=== PATIENT | male | born 1965 | race Caucasian/White ===

== ENCOUNTER 2019-07-04 02:43 | Emergency (ER) | payer OTHER ==
[2019-07-04 03:17] LABS: #Basophils 0.1 thou/uL (0.0-0.2); #Eosinphils 0.2 thou/uL (0.0-0.7); #Lymphocytes 1.8 thou/uL (1.20-3.40); #Monocytes 0.7 thou/uL (0.11-0.59); #Neutrophils 5.1 thou/uL (1.40-6.50); %Basophils 0.9 % (0.0-1.0); %Eosinophils 2.8 % (0.0-10.0); %Lymphocytes 22.4 % (21.0-51.0); %Monocytes 9.4 % (0.0-10.0); %Neutrophils 64.6 % (42.0-75.0); Hemoglobin 13.7 g/dL (14.0-18.0); Mean Corpuscular HGB CONC 35.5 g/dL (32.0-36.0); Mean Corpuscular Hemoglobin 31.5 pg (27.0-31.0); Mean Corpuscular Volume 88.7 fL (78.0-98.0); Mean Platelet Volume 7.6 fL (7.4-10.4); Platelet Count 150 thou/uL (130-400); RBC Distribution Width 11.9 % (11.5-14.5); Red Blood Cell (RBC) Count 4.34 mill/uL (4.70-6.10); White Blood Cell (WBC) Count 7.9 thou/uL (4.8-10.8)
[2019-07-04 03:34] LABS: Bilirubin Negative (Negative); Blood, Urine Negative (Negative); Clarity Turbid (Clear); Glucose, Urine (Dipstick) Normal (Negative); Leukocyte Negative Leu/uL (Negative); Nitrite Negative (Negative); Protein, Urine (Dipstick) Negative (Neg-Trace); Urobilinogen Normal mg/dL (Less than 2)
[2019-07-04 03:40] LABS: ALT (SGPT) 36 U/L (8-55); AST (SGOT) 30 U/L (5-34); Albumin 3.9 g/dL (3.5-5.0); Alkaline Phosphatase 47 U/L (40-110); Anion Gap 11 mmol/L (10-20); BUN (Urea Nitrogen) 18 mg/dL (8.4-25.7); Bilirubin, Total 0.4 mg/dL (0.2-1.2); CK (CPK) 422 U/L (30-200); Calc. Creatinine Clearance 0 mL/min (70-130); Calcium 8.7 mg/dL (7.8-10.44); Carbon Dioxide 29 mmol/L (22-29); Chloride 106 mmol/L (98-107); Estimated GFR-MDRD 48; Globulin 2.7 g/dL (2.4-3.5); Glucose 76 mg/dL (70-105); Potassium 4.1 mmol/L (3.5-5.1); Protein, Total 6.6 g/dL (6.0-8.3); Sodium 142 mmol/L (136-145)
[2019-07-04 06:45] LABS: Troponin I 0.013 ng/mL (< 0.028)
--- NOTE | 2019-07-04 07:57 | RAD ---
RADIOGRAPH CHEST 1 VIEW: DATE: 07/04/2019 HISTORY: 54-year-old male with palpitations FINDINGS: There are no airspace densities, pulmonary edema, pneumothorax, or cardiomegaly. The lateral costophr enic angles are sharp. IMPRESSION: No acute cardiopulmonary findings.
--- NOTE | 2019-07-04 10:26 | CT ---
PRELIMINARY REPORT/[facility]/EMERGENCY AFTER HOURS PROCEDURE: PROCEDURE INFORMATION: Exam: CT Angiography Chest With Contrast Exam date and time: 07/04/2019 3:56 AM Clinical history: 54 years old, male; Pain radiating to back. Question dissection. TECHNIQUE: Imaging protocol: Computed tomographic angiography of the chest with intravenous contrast. COMPARISON: No relevant prior studies available. FINDINGS: Pulmonary arteries: Not adequately opacified for evaluation. Aorta: No aortic aneurysm. No aortic dissection. Lungs: No focal infiltrate. No masses. Pleural space: No pneumothorax. No pleural effusion. Heart: No cardiomegaly. No pericardial effusion. Lymph nodes: Unremarkable. No enlarged lymph nodes. Bones/joints: Unremarkable. No acute fracture. Soft tissues: Unremarkable. IMPRESSION: No aortic aneurysm. No aortic dissection. No acute disease identified. PROCEDURE INFORMATION: Exam: CTA Angiogram of the Abdominal Aorta and Bilateral Lower Extremities (Run-off) With IV Contrast Exam date and time: 07/04/2019 3:56 AM Clinical history: 54 years old, male; Abdominal pain; Patient HX: 54 male presents to the ED with hipolito ateral medial leg pain that starts at the medial aspect of the knee and radiates up towards the groin . PT notes that for the past couple of days he has been working outside more then normal the past few days and was drinking less water then normal. PT describes the pain as getting gradually bet ter since the saline was given in the EMS ride over here. PT does have a HX of l4/l5 l5/s1 herniated disk but notes the pain he is currently having is distinctly different then his back pain before. PT denies recent trama. PT denies penile and testicular pain, discharge, bowl or bladder incontinence and numbness. TECHNIQUE: Imaging protocol: CT angiogram of the abdominal aorta, pelvis and bilateral lower extremities with IV iodinated contrast. COMPARISON: No relevant prior studies available. FINDINGS: Aorta: No aortic aneurysm. No aortic dissection. Celiac trunk and mesenteric arteries: No occlusion or significant stenosis. Renal arteries: No occlusion or significant stenosis. Right iliac arteries: No occlusion or significant stenosis. Right femoral/popliteal arteries: No occlusion or significant stenosis. Right infrapopliteal arteries: No occlusion or significant stenosis. Left iliac arteries: No occlusion or significant stenosis. Left femoral/popliteal arteries: No occlusion or significant stenosis. Left infrapopliteal arteries: No occlusion or significant stenosis. Liver: No mass. Fatty liver infiltration. Gallbladder and bile ducts: Unremarkable. No calcified stones. No ductal dilation. Pancreas: Unremarkable. No mass. No ductal dilation. Spleen: Normal. No splenomegaly. Adrenals: Normal. No mass. Kidneys and ureters: No mass. Stomach and bowel: There is dense colonic fecal retention. No mechanical obstruction. No mucosal thic kening. There is colonic diverticulosis without CT evidence for acute diverticulitis. Appendix: No evidence of appendicitis. Bladder: Moderate wall thickening. No mass. Reproductive: Unremarkable as visualized. Intraperitoneal space: Unremarkable. No free air. No significant fluid collection. Lymph nodes: No lymphadenopathy. Bones/joints: No acute fracture. No dislocation. Soft tissues: Unremarkable. IMPRESSION: Unremarkable CTA abdomen, pelvis and lower extremities. No dissection or aneurysm. No significant stenosis or atheromatous disease. Bladder wall thickening, perhaps exaggerated by underdistention, however cystitis not excluded. Fecal retention. Diverticulosis without diverticulitis. Fatty liver. Thank you for allowing us to participate in the care of your patient. Dictated and Authenticated by: Nely Calles MD 07/04/2019 4:49 AM Central Time ([place] & [place]) FINAL REPORT EMERGENCY AFTER HOURS STUDY CHEST CT ANGIOGRAM WITH 3D RENDERING ABDOMEN CT ANGIOGRAM WITH 3D RENDERING PELVIC AND BILATERAL LOWER EXTREMITY CT ANGIOGRAM WITH 3D RENDERING: HISTORY: Back pain, bilateral leg pain. FINDINGS/IMPRESSION: CT ANGIOGRAM CHEST WITH 3D RENDERING: No evidence for aortic dissection or other significant acute process. CT ANGIOGRAM ABDOMEN WITH 3D RENDERING: No evidence for abdominal aortic aneurysm or dissection, or other significant acute process. CT ANGIOGRAM PELVIS AND BILATERAL LOWER EXTREMITY CT ANGIOGRAM WITH 3D RENDERING: Evidence for urinary bladder wall thickening, nonspecific, possibly cystitis. No evidence for lower e xtremity arterial occlusive or significant stenotic disease. This report is in agreement with the preliminary report by Jose. POS: [facility]
[2019-07-04] MEDS ORDERED: Iopamidol-370 76% 500 ML 1 ML ONE (16:48)
== END 2019-07-04 07:09 | disposition home or self-care (01) ==
LOC: ERS 02:43
DX: I49.3 Ventricular premature depolarization (principal); R25.2 Cramp and spasm; J45.909 Unspecified asthma, uncomplicated; E78.5 Hyperlipidemia, unspecified; Z79.82 Long term (current) use of aspirin; Z79.899 Other long term (current) drug therapy
CPT/HCPCS: 36415; 71045; 75635; 80053; 81003; 82550; 83690; 84484; 85025; 93005; 94760; 96360; 96361; Q9967

== ENCOUNTER 2022-10-15 01:33 | Emergency (ER) | payer OTHER ==
[2022-10-15 02:12] LABS: Bilirubin Negative (Negative); Blood, Urine Negative (Negative); Clarity Clear (Clear); Glucose, Urine (Dipstick) Normal (Negative); Ketone, Urine Negative (Negative); Leukocyte Negative Leu/uL (Negative); Nitrite Negative (Negative); Protein, Urine (Dipstick) 10 mg/dL (Neg-Trace); Specific Gravity, Urine 1.027 (1.002-1.036); Urobilinogen Normal mg/dL (Less than 2); pH, Urine 6.5 (5.0-9.0)
[2022-10-15 03:12] LABS: #Eosinphils 0.2 thou/uL (0.0-0.7); #Lymphocytes 1.7 thou/uL (1.20-3.40); #Monocytes 0.8 thou/uL (0.11-0.59); #Neutrophils 6.6 thou/uL (1.40-6.50); %Basophils 0.4 % (0.0-1.0); %Monocytes 8.8 % (0.0-10.0); %Neutrophils 70.8 % (42.0-75.0); Hemoglobin 13.2 g/dL (14.0-18.0); Mean Corpuscular HGB CONC 34.1 g/dL (32.0-36.0); Mean Corpuscular Hemoglobin 31.2 pg (27.0-31.0); Mean Corpuscular Volume 91.5 fl (78.0-98.0); Mean Platelet Volume 8.6 fL (7.4-10.4); Platelet Count 129 10x3/uL (130-400); RBC Distribution Width 11.8 % (11.5-14.5); Red Blood Cell (RBC) Count 4.23 mill/uL (4.70-6.10); White Blood Cell (WBC) Count 9.3 10x3/uL (4.8-10.8)
[2022-10-15 03:34] LABS: ALT (SGPT) 34 U/L (8-55); AST (SGOT) 28 U/L (5-34); Albumin 3.8 g/dL (3.5-5.0); Alkaline Phosphatase 48 U/L (40-110); Anion Gap 10 mmol/L (10-20); BUN (Urea Nitrogen) 25 mg/dL (8.4-25.7); Bilirubin, Total 0.6 mg/dL (0.2-1.2); CK (CPK) 444 U/L (30-200); Calc. Creatinine Clearance 0 mL/min (70-130); Calcium 9.4 mg/dL (7.8-10.44); Carbon Dioxide 28 mmol/L (22-29); Chloride 104 mmol/L (98-107); Estimated GFR 93; Globulin 2.7 g/dL (2.4-3.5); Glucose 127 mg/dL (70-105); Protein, Total 6.5 g/dL (6.0-8.3); Sodium 138 mmol/L (136-145)
[2022-10-15 08:45] LABS: Amphetamine Not Detected (NotDetected); Barbiturates Screen Not Detected (NotDetected); Benzodiazepine Screen Not Detected (NotDetected); Cocaine Metabolite Screen Not Detected (NotDetected); Methadone Not Detected (NotDetected); Methamphetamine Not Detected (NotDetected); Opiate Screen Not Detected (NotDetected); Oxycodone Screen Not Detected (NotDetected); Phencyclidine (PCP) Not Detected (NotDetected); THC/Cannabinoid Screen Not Detected (NotDetected); Tricyclic Screen Not Detected (NotDetected)
== END 2022-10-15 07:27 | disposition home or self-care (01) ==
LOC: ERS 01:33
DX: E86.0 Dehydration (principal); T67.2XXA Heat cramp, initial encounter; I10 Essential (primary) hypertension; E78.5 Hyperlipidemia, unspecified; X19.XXXA Contact with other heat and hot substances, initial encounter; Z79.899 Other long term (current) drug therapy; Z79.82 Long term (current) use of aspirin
CPT/HCPCS: 36415; 80053; 80306; 81003; 82550; 85025; 96360